=== PATIENT | male | born 1940 | race Caucasian/White ===

== ENCOUNTER 2019-07-27 09:37 | Observation (INO) ==
[2019-07-27] MEDS ORDERED: BENTYL I.M. INJ 10 MG IM ONE ×2 (11:24→11:37)
--- NOTE | 2019-07-27 11:25 | DR.ABDMALE ---
HPI Time seen Time Seen by Provider: 07/27/19 11:17 PCP Primary Care Physician: CAROL HPI comment HPI Comment: Hx Crohns. Had a resection 18 years ago. Has GI doc in [place]. now 24 hours of abd pain and swelling. He thinks he has a bowel blockage. Complaint Chief Complaint:: PT CO ABDOMINAL PAIN THAT STARTED AT NOON ON 07/26/2019. CO PAIN TO ENTIRE ABDOMEN. STATES HE HAS A HISTORY OF CHRONS DISEASE . STATES "I THINK ITS A BLOCKAGE AGAIN". Self Treatment fo Chief Complaint: NONE Reviewed Nurses Notes Review: Yes Mode of arrival Mode of Arrival: Ambulatory Timing Onset of Chief Complaint: 07/26/19 PMH PMH Past Medical History: Yes Past Medical History: Arthritis and Hypertension Past Medical History Comment: CHRONS Past Surgical History: Yes Surgical History: Abdominal Surgery and Tonsillectomy Family History History of Family Medical Conditions: No Social History Does patient currently use any type of tobacco product: No Have you used tobacco products in the last 12 months: No Type of Tobacco Use: None How many years tobacco product used: 35 Does any household member use tobacco: No Alcohol Use: None Do you use any recreational Drugs:: No Lives With: Spouse Lives Where: Home infectious screening In the last 2 months have you had wt loss of >10#?: NO Have you had fever, night sweats or hemotysis?: No Have you traveled outside the country in the last 6 months?: No Isolation: Standard ROS Review of Systems Constitutional: negative Fever Respiratoy: No Symptoms Reported Cardiovascular: No Symptoms Reported Gastrointestinal/Abdominal: Abdominal Pain and Nausea; negative Diarrhea and Vomiting Genitourinary: No Symptoms Reported Integumentary: No Symptoms Reported All Other Systems: Reviewed and Negative PE Vital Signs Vital Signs: Temp Pulse Pulse Resp BP BP Pulse Ox 07/27/19 17:07 59 L 17 142/78 96 07/27/19 09:52 97.8 F 84 18 117/58 98 General Limitations: No Limitations General Appearance: Alert and Other (in pain, uncomfortable) Eyes Eye exam: Normal Appearance and EOMI; negative Scleral Icterus ENT ENT Exam: Mucous Membranes Moist Chest Chest Inspection: Symmetric Chest Wall Rise Respiratory Respiratory Exam: Normal Lung Sounds Bilat Cardiovascular Cardiovascular Exam: Regular Rate, Normal Rhythm and Normal Heart Sounds Abdominal Exam Abdominal Exam: Soft, Tenderness, Guarding and Incision; negative Rebound, Rigidity and Ascites Abdominal Tenderness: RLQ, LLQ and Moderate Rectal Rectal Exam: Deferred Back Back Exam: Normal Inspection; negative (R) CVA Tenderness and (L) CVA Tenderness Extremeties Extremities Exam: Full ROM; negative Edema Neurologic Neurological Exam: Alert and Oriented X3 Skin Skin Exam: Warm, Dry and Normal Color MDM Differential Diagnosis Differential Diagnosis: Appendicitis, Bowel Obstruction, Diverticular disease and Inflammatory BD COURSE Treatment Treatment: In light of Crohns, his age, and mildly elevated WBC, will place in obs for IV ABX's. Reevaluation 1st: Improved ROR Labs Reviewed Laboratory Results Reviewed?: Yes Result Diagrams: 07/27/19 11:35 07/27/19 11:35 Laboratory: WBC 13.3 X10^3/uL (3.6-10.0) H 07/27/19 11:35 RBC 4.77 X10^6/uL (4.7-6.0) 07/27/19 11:35 Hgb 15.0 g/dL (13.5-18.0) 07/27/19 11:35 Hct 43.8 % (42.0-54.0) 07/27/19 11:35 MCV 92.0 fL (80.0-100.0) 07/27/19 11:35 MCH 31.5 pg (27.0-34.0) 07/27/19 11:35 MCHC 34.2 g/dL (33.0-35.0) 07/27/19 11:35 RDW 12.7 % (11.6-16.5) 07/27/19 11:35 Plt Count 244 X10^3/uL (150.0-450.0) 07/27/19 11:35 MPV 7.8 fL (7.4-11.0) 07/27/19 11:35 Neut % (Auto) 83.6 % (42.0-75.0) H 07/27/19 11:35 Lymph % (Auto) 8.9 % (21.0-51.0) L 07/27/19 11:35 [place] % (Auto) 6.1 % (0.0-13.0) 07/27/19 11:35 Eos % (Auto) 0.8 % (0.9-2.9) L 07/27/19 11:35 Baso % (Auto) 0.6 % (0.2-1.0) 07/27/19 11:35 Neut # (Auto) 11.2 x10^3/uL (2.2-4.8) H 07/27/19 11:35 Lymph # (Auto) 1.2 X10^3/uL (1.3-2.9) L 07/27/19 11:35 [place] # (Auto) 0.8 x10^3/uL (0.3-0.8) 07/27/19 11:35 Eos # (Auto) 0.1 x10^3/uL (0.0-0.2) 07/27/19 11:35 Baso # (Auto) 0.1 X10^3/uL (0.0-0.1) 07/27/19 11:35 Absolute Nucleated RBC 0.1 /100WBC 07/27/19 11:35 Sodium 144 mmol/L (136-145) 07/27/19 11:35 Corrected Sodium 145 mmol/L (136-145) 07/27/19 11:35 Potassium 3.2 mmol/L (3.5-5.1) L 07/27/19 11:35 Chloride 103 mmol/L (98-107) 07/27/19 11:35 Carbon Dioxide 32.9 mmol/L (21-32) H 07/27/19 11:35 BUN 16 mg/dL (7-18) 07/27/19 11:35 Creatinine 1.38 mg/dL (0.70-1.30) H 07/27/19 11:35 Est GFR (MDRD) Af Amer > 60 (>60) 07/27/19 11:35 Est GFR (MDRD) Non-Af 53 (>60) L 07/27/19 11:35 Glucose 124 mg/dL (65-99) H 07/27/19 11:35 Calcium 9.4 mg/dL (8.5-10.1) 07/27/19 11:35 Corrected Calcium TNP 07/27/19 11:35 Total Bilirubin 0.60 mg/dL (0.2-1.0) 07/27/19 11:35 AST 18 Units/L (15-37) 07/27/19 11:35 ALT 21 Units/L (12-78) 07/27/19 11:35 Alkaline Phosphatase 63 Units/L (46-116) 07/27/19 11:35 Total Protein 7.3 g/dL (6.4-8.2) 07/27/19 11:35 Albumin 3.9 g/dL (3.4-5.0) 07/27/19 11:35 Globulin 3.4 g/dL (2.5-4.5) 07/27/19 11:35 Albumin/Globulin Ratio 1.1 Ratio (1.1-2.1) 07/27/19 11:35 Other Results Comments: high WBC w shift. Creat elevated XRAY XRAY Findings: obstr series n'l. CT abd shows Crohns flare terminal ileum. Opioid Opioid Risk Tool Total: 0 Total Score Risk Category: Low Risk Copyright: Neel DE SANTIAGO predicting aberrant behaviors Instructions Forms: Excuse From Work ADDITIONAL NOTES Additional Notes Additional Notes: Pt placed in observation for Crohns flare
[2019-07-27 11:43] LABS: BASOPHILS # (AUTO) 0.1 X10^3/uL (0.0-0.1); BASOPHILS % (AUTO) 0.6 % (0.2-1.0); EOSINOPHILS # (AUTO) 0.1 x10^3/uL (0.0-0.2); EOSINOPHILS % (AUTO) 0.8 % (0.9-2.9); HEMATOCRIT 43.8 % (42.0-54.0); LYMPHOCYTES # (AUTO) 1.2 X10^3/uL (1.3-2.9); LYMPHOCYTES % (AUTO) 8.9 % (21.0-51.0); MEAN CORPUSCULAR HEMOGLOBIN 31.5 pg (27.0-34.0); MEAN CORPUSCULAR HGB CONC 34.2 g/dL (33.0-35.0); MEAN PLATELET VOLUME 7.8 fL (7.4-11.0); MONOCYTES # (AUTO) 0.8 x10^3/uL (0.3-0.8); MONOCYTES % (AUTO) 6.1 % (0.0-13.0); NEUTROPHILS # (AUTO) 11.2 x10^3/uL (2.2-4.8); NEUTROPHILS % (AUTO) 83.6 % (42.0-75.0); PLATELET COUNT 244 X10^3/uL (150.0-450.0); RED BLOOD COUNT 4.77 X10^6/uL (4.7-6.0); RED CELL DISTRIBUTION WIDTH 12.7 % (11.6-16.5); WHITE BLOOD COUNT 13.3 X10^3/uL (3.6-10.0)
[2019-07-27 11:55] LABS: ALANINE AMINOTRANSFERASE 21 Units/L (12-78); ALBUMIN 3.9 g/dL (3.4-5.0); ALKALINE PHOSPHATASE 63 Units/L (46-116); ASPARTATE AMINO TRANSFERASE 18 Units/L (15-37); BLOOD UREA NITROGEN 16 mg/dL (7-18); CALCIUM 9.4 mg/dL (8.5-10.1); CARBON DIOXIDE 32.9 mmol/L (21-32); CHLORIDE 103 mmol/L (98-107); COR NA(FOR HYPERGLY) 145 mmol/L (136-145); CREATININE 1.38 mg/dL (0.70-1.30); SODIUM 144 mmol/L (136-145); TOTAL PROTEIN 7.3 g/dL (6.4-8.2); eGFR NON BLACK RACES 53 (>60)
--- NOTE | 2019-07-27 12:00 | RAD ---
HISTORYAbdominal painSTUDYACUTE ABDOMEN SERIESCOMPARISONNoneFINDINGSThe heart is within normal limits in size. The po are normal. The lungs are hyperinflated but clear. The abdominal gas pattern is nonspecific. No pneumoperitoneum is identified. No abnormal masses or abnormal calcifications are identified. The regional skeleton is intact.IMPRESSIONNonspecific bowel gas patternElectronically signed by: VANDANA EVANGELISTA (Jul 27, 2019 11:59:53)
--- NOTE | 2019-07-27 15:19 | CT ---
ABDOMEN/PELVIS WITH CONHISTORY: ABD PAINComparison:NoneTechnique:Multiple axial images of the abdomen and pelvis were obtained from the lung bases to the pubic symphysis following the administration of IV contrast as well as oral contrast . Dose reduction techniques including Automated Exposure Control (AEC) and adjustment of mA and kV were utlized.Findings:The heart is normal in size. There is no pericardial effusion. Emphysema of the lung bases.Severe coronary calcification.Liver and spleen are normal in size, enhancement characteristics and contour. No focal lesions. The portal vein is patent. No ductal dilitation. Gallbladder is present. No calcified gallstones or gallbladder wall thickening. The pancreas is unremarkable. Adrenal glands are normal. Kidneys enhance symmetrically without hydronephrosis or nephrolithiasis.Circumferential thickening inflammation of the distal ileum for example on series 4, image 65. Contrast breast beyond this point into the colon. No abnormal appearing mesenteric or retroperitoneal lymph nodes. . No free fluid or fluid collections.The bladder is normal in appearance. Prostate not enlarged no free fluid or abnormal pelvic lymph nodes.No aggressive osseous lesions.IMPRESSION:1. Inflammation of the terminal ileum. No evidence of obstruction. This can be seen with inflammatory bowel disease if that is consistent with patient's history.Electronically signed by: CHILO ARCE (Jul 27, 2019 15:18:06)
[2019-07-27] MEDS ORDERED: CIPRO IV 400 MG PREMIX* 400 MG/200 ML IV.SOLN. IV ONE ×2 (15:49→15:56)
[2019-07-27] MEDS ORDERED: FLAGYL IV PREMIX 500 MG BAG 500 MG/100 ML BAG IV ONE ×2 (15:50→15:55)
[2019-07-27] MEDS ORDERED: NS 1000 ML 1,000 ML IV ONE (15:50)
[2019-07-27] MEDS ORDERED: NS 1000 ML 1,000 ML ONE (15:55)
[2019-07-27] MEDS ORDERED: ZOFRAN INJ 4 MG VIAL IVP PRN (17:22)
--- NOTE | 2019-07-27 17:38 | DR.ABDMALE ---
HPI Time seen Time Seen by Provider: 07/27/19 11:17 PCP Primary Care Physician: CAROL Complaint Chief Complaint:: PT CO ABDOMINAL PAIN THAT STARTED AT NOON ON 07/26/2019. CO PAIN TO ENTIRE ABDOMEN. STATES HE HAS A HISTORY OF CHRONS DISEASE . STATES "I THINK ITS A BLOCKAGE AGAIN". Self Treatment fo Chief Complaint: NONE Mode of arrival Mode of Arrival: Ambulatory Timing Onset of Chief Complaint: 07/26/19 PMH PMH Past Medical History: Yes Past Medical History: Arthritis and Hypertension Past Medical History Comment: CHRONS Past Surgical History: Yes Surgical History: Abdominal Surgery and Tonsillectomy Family History History of Family Medical Conditions: No Social History Does patient currently use any type of tobacco product: No Have you used tobacco products in the last 12 months: No Type of Tobacco Use: None How many years tobacco product used: 35 Does any household member use tobacco: No Alcohol Use: None Do you use any recreational Drugs:: No Lives With: Spouse Lives Where: Home infectious screening In the last 2 months have you had wt loss of >10#?: NO Have you had fever, night sweats or hemotysis?: No Have you traveled outside the country in the last 6 months?: No Isolation: Standard PE Vital Signs Vital Signs: Temp Pulse Pulse Resp BP BP Pulse Ox 07/27/19 17:07 59 L 17 142/78 96 07/27/19 09:52 97.8 F 84 18 117/58 98 ROR Labs Reviewed Result Diagrams: 07/27/19 11:35 07/27/19 11:35 Laboratory: WBC 13.3 X10^3/uL (3.6-10.0) H 07/27/19 11:35 RBC 4.77 X10^6/uL (4.7-6.0) 07/27/19 11:35 Hgb 15.0 g/dL (13.5-18.0) 07/27/19 11:35 Hct 43.8 % (42.0-54.0) 07/27/19 11:35 MCV 92.0 fL (80.0-100.0) 07/27/19 11:35 MCH 31.5 pg (27.0-34.0) 07/27/19 11:35 MCHC 34.2 g/dL (33.0-35.0) 07/27/19 11:35 RDW 12.7 % (11.6-16.5) 07/27/19 11:35 Plt Count 244 X10^3/uL (150.0-450.0) 07/27/19 11:35 MPV 7.8 fL (7.4-11.0) 07/27/19 11:35 Neut % (Auto) 83.6 % (42.0-75.0) H 07/27/19 11:35 Lymph % (Auto) 8.9 % (21.0-51.0) L 07/27/19 11:35 [place] % (Auto) 6.1 % (0.0-13.0) 07/27/19 11:35 Eos % (Auto) 0.8 % (0.9-2.9) L 07/27/19 11:35 Baso % (Auto) 0.6 % (0.2-1.0) 07/27/19 11:35 Neut # (Auto) 11.2 x10^3/uL (2.2-4.8) H 07/27/19 11:35 Lymph # (Auto) 1.2 X10^3/uL (1.3-2.9) L 07/27/19 11:35 [place] # (Auto) 0.8 x10^3/uL (0.3-0.8) 07/27/19 11:35 Eos # (Auto) 0.1 x10^3/uL (0.0-0.2) 07/27/19 11:35 Baso # (Auto) 0.1 X10^3/uL (0.0-0.1) 07/27/19 11:35 Absolute Nucleated RBC 0.1 /100WBC 07/27/19 11:35 Sodium 144 mmol/L (136-145) 07/27/19 11:35 Corrected Sodium 145 mmol/L (136-145) 07/27/19 11:35 Potassium 3.2 mmol/L (3.5-5.1) L 07/27/19 11:35 Chloride 103 mmol/L (98-107) 07/27/19 11:35 Carbon Dioxide 32.9 mmol/L (21-32) H 07/27/19 11:35 BUN 16 mg/dL (7-18) 07/27/19 11:35 Creatinine 1.38 mg/dL (0.70-1.30) H 07/27/19 11:35 Est GFR (MDRD) Af Amer > 60 (>60) 07/27/19 11:35 Est GFR (MDRD) Non-Af 53 (>60) L 07/27/19 11:35 Glucose 124 mg/dL (65-99) H 07/27/19 11:35 Calcium 9.4 mg/dL (8.5-10.1) 07/27/19 11:35 Corrected Calcium TNP 07/27/19 11:35 Total Bilirubin 0.60 mg/dL (0.2-1.0) 07/27/19 11:35 AST 18 Units/L (15-37) 07/27/19 11:35 ALT 21 Units/L (12-78) 07/27/19 11:35 Alkaline Phosphatase 63 Units/L (46-116) 07/27/19 11:35 Total Protein 7.3 g/dL (6.4-8.2) 07/27/19 11:35 Albumin 3.9 g/dL (3.4-5.0) 07/27/19 11:35 Globulin 3.4 g/dL (2.5-4.5) 07/27/19 11:35 Albumin/Globulin Ratio 1.1 Ratio (1.1-2.1) 07/27/19 11:35 Opioid Opioid Risk Tool Total: 0 Total Score Risk Category: Low Risk Copyright: Neel DE SANTIAGO predicting aberrant behaviors Diagnosis Discharge Problem: Crohn's disease involving terminal ileum
[2019-07-27] MEDS ORDERED: K-DUR TAB 20 MEQ PO PRN (19:05)
[2019-07-27] MEDS ORDERED: POTASSIUM CHL 40 MEQ/NS 0.45% 500 ML IV PRN (19:05)
[2019-07-27] MEDS ORDERED: MICRO K EXTEN CAP 10 MEQ PO PRN (19:05)
[2019-07-27] MEDS ORDERED: MAGNESIUM SULFATE 1 GRAM/100 mL PREMIX 1 GM/100 ML BAG IV PRN (19:05)
[2019-07-27] MEDS ORDERED: K-RIDER 10 MEQ/NS 100 ML 10 MEQ/100 ML BAG IV PRN (19:05)
[2019-07-27] MEDS ORDERED: POTASSIUM CHLORIDE LIQ 20 MEQ UDC PO PRN (19:05)
[2019-07-27] MEDS ORDERED: KLOR-CON PO PRN (19:05)
[2019-07-27] MEDS ORDERED: POTASSIUM CHL 60 MEQ/NS 0.45% 500 ML IV PRN (19:05)
[2019-07-27 19:14] VITALS: BMI 25.2
[2019-07-27] MEDS ORDERED: PREVNAR 13 IM ONE ×2 (19:14→23:03)
[2019-07-27] MEDS: CIPRO IV 400 MG PREMIX* 400 MG/200 ML IV.SOLN. IV SCH (21:36)
[2019-07-27] MEDS: FLAGYL IV PREMIX 500 MG BAG 500 MG/100 ML BAG IV SCH (21:36)
[2019-07-27] MEDS: KETOROLAC OP SCH (22:34)
[2019-07-27] MEDS: PRED FORTE 1 % OP SCH (22:34)
[2019-07-28] MEDS: FLAGYL IV PREMIX 500 MG BAG 500 MG/100 ML BAG IV SCH ×2 (02:07→09:01)
[2019-07-28 06:10] LABS: BASOPHILS # (AUTO) 0.1 X10^3/uL (0.0-0.1); BASOPHILS % (AUTO) 0.6 % (0.2-1.0); EOSINOPHILS # (AUTO) 0.2 x10^3/uL (0.0-0.2); EOSINOPHILS % (AUTO) 2.5 % (0.9-2.9); HEMATOCRIT 39.6 % (42.0-54.0); HEMOGLOBIN 13.6 g/dL (13.5-18.0); LYMPHOCYTES # (AUTO) 1.7 X10^3/uL (1.3-2.9); LYMPHOCYTES % (AUTO) 17.3 % (21.0-51.0); MEAN CORPUSCULAR HEMOGLOBIN 31.4 pg (27.0-34.0); MEAN CORPUSCULAR HGB CONC 34.3 g/dL (33.0-35.0); MEAN CORPUSCULAR VOLUME 91.7 fL (80.0-100.0); MEAN PLATELET VOLUME 8.1 fL (7.4-11.0); MONOCYTES # (AUTO) 0.9 x10^3/uL (0.3-0.8); MONOCYTES % (AUTO) 9.4 % (0.0-13.0); NEUTROPHILS # (AUTO) 6.7 x10^3/uL (2.2-4.8); NEUTROPHILS % (AUTO) 70.2 % (42.0-75.0); PLATELET COUNT 217 X10^3/uL (150.0-450.0); RED BLOOD COUNT 4.32 X10^6/uL (4.7-6.0); RED CELL DISTRIBUTION WIDTH 13.1 % (11.6-16.5); WHITE BLOOD COUNT 9.6 X10^3/uL (3.6-10.0)
[2019-07-28 06:36] LABS: ALANINE AMINOTRANSFERASE 20 Units/L (12-78); ALBUMIN 3.2 g/dL (3.4-5.0); ALKALINE PHOSPHATASE 55 Units/L (46-116); ASPARTATE AMINO TRANSFERASE 17 Units/L (15-37); BLOOD UREA NITROGEN 15 mg/dL (7-18); CALCIUM 8.4 mg/dL (8.5-10.1); CARBON DIOXIDE 30.5 mmol/L (21-32); CHLORIDE 106 mmol/L (98-107); SODIUM 144 mmol/L (136-145); TOTAL PROTEIN 6.1 g/dL (6.4-8.2); eGFR NON BLACK RACES > 60 (>60)
[2019-07-28 07:14] LABS: ERYTHROCYTE SEDIMENTATION RATE 7 MM/HOUR (0-15)
[2019-07-28] MEDS ORDERED: ZESTORETIC 20/25 MG PO SCH (09:00)
[2019-07-28] MEDS ORDERED: LOVENOX INJ 40 MG SYR SC SCH (09:00)
[2019-07-28] MEDS ORDERED: SOLU-Medrol 125 MG VIAL IVP SCH (09:00)
[2019-07-28] MEDS ORDERED: NS 1000 ML 1,000 ML IV SCH (09:00)
[2019-07-28] MEDS ORDERED: DEXAMETHASONE OP SCH (09:00)
[2019-07-28] MEDS: PRED FORTE 1 % OP SCH (09:04)
[2019-07-28] MEDS: KETOROLAC OP SCH (09:05)
[2019-07-28] MEDS: CIPRO IV 400 MG PREMIX* 400 MG/200 ML IV.SOLN. IV SCH (10:16)
[2019-07-28 12:20] VITALS: BP 146/67
--- NOTE | 2019-08-15 18:29 | DR.CARTERS ---
Short Stay Summary - Admission Date Date of Admission: 07/27/19 - Discharge Date Discharge Date: 07/28/19 - Admission Diagnoses (1) Crohn's disease involving terminal ileum Status: Acute (2) Abdominal pain Status: Acute - Hospital Course Hospital Course: IS A 78 YEAR OLD PATIENT OF OURS WHO PRESENTED TO THE ER WITH COMPLAINTS OF ABDOMINAL PAIN THAT STARTED AT NOON ON 07/26/19. HE COMPLAINTED OF PAIN TO THE ENTIRE ABDOMEN. HE REPORTED A HISTORY OF CHRONS DISEASE AND REPORTS THAT HE THINKS HE HAS A NEW BLOCKAGE. ON ARRIVAL, VITALS WERE 97.8-84-18-98%-117/58. LABS WERE OBTAINED. ABNORMAL LAB VALUES INCLUDED THE FOLLOWING: WBC 13.3, POTASSIUM 3.2, CREATININE 1.38, GLUCOSE 124. AN ABDOMEN XRAY WAS OBTAINED. IT REVEALED: NONSPECIFIC BOWEL GAS PATTERN. AN ABDOMEN/PELVIS CT WITH CONTRAST WAS OBTAINED AND REVEALED: 1. Inflammation of the terminal ileum. No evidence of obstruction. This can be seen with inflammatory bowel disease if that is consistent with patient's history. HE WAS GIVEN BENTYL 10MG IM X 1, CIPRO 400MG IV X 1, FLAGYL 500MG IV X 1 IN THE ER. HE WAS ADMITTED FOR FURTHER EVALUATION AND TREATMENT OF ABDOMINAL PAIN DUE TO CHRONS FLARE. HE WAS STARTED ON IV FLAGYL, IV CIPRO, IV ZOFRAN, LOVENOX, AND HOME MEDICATIONS WERE RESUMED. OTHERWISE, WE PLANNED TO FOLLOW UP WITH AM LABS AND CONTINUE TO MONITOR. ON THE DAY FOLLOWING ADMISSION, PATIENT IS ALERT AND ORIENTED, LYING IN BED ON MORNING ROUNDS. HE DENIES PAIN OR NAUSEA THIS MORNING. ON EXAMINATION, HEART IS REGULAR IN RATE AND RHYTHM. BILATERAL LUNGS ARE NOTED WITH DIMINISHED LUNG SOUNDS THROUGHOUT. ABDOMEN IS ROUND, SOFT, AND NON-TENDER WITH NORMAL BOWEL SOUNDS NOTED IN ALL QUADRANTS. HIS VITALS THIS MORNING ARE: 98.1-68-16-96%-141/76. LABS WERE OBTAINED. ABNORMAL LAB VALUES INCLUDE THE FOLLOWING: RBC 4.32, HCT 39.6, POTASSIUM 3.0, CALCIUM 8.4, CRP 3.60, TOTAL PROTEIN 6.1, ALBUMIN 3.2. WE PLANNED FOR DISCHARGE. INSTRUCTIONS FOR MEDICATIONS AND FOLLOW UP WERE DISCUSSED WITH PATIENT AND FAMILY. HE WAS DISCHARGED HOME WITH NEW PRESCRIPTIONS OF PROTONIX 40MG PO BID, PREDNISONE 10MG PO BID, AND SULFASALAZINE 500MG PO BID. HE IS INSTRUCTED TO DISCONTINUE THE NEXIUM. HE WILL NEED TO FOLLOW UP IN THE OFFICE IN ONE WEEK. HE WAS DISCHARGED HOME WITH FAMILY IN STABLE CONDITION. - Discharge Medications Discharge Medications: Home Medication List alprazolam 0.5 mg PO HS PRN 07/27/19 [History] atorvastatin 10 mg PO HS 07/27/19 [History] dexamethasone [Maxidex] 1 drp OPHTHALMIC (EYE) DAILY 07/27/19 [History] ergocalciferol (vitamin D2) 50,000 unit PO WEEKLY 07/27/19 [History] esomeprazole magnesium 40 mg PO DAILY 07/27/19 [History] ketorolac 1 drp OPHTHALMIC (EYE) QID 07/27/19 [History] lisinopril-hydrochlorothiazide 1 tab PO DAILY 07/27/19 [History] prednisolone acetate 1 drp OPHTHALMIC (EYE) QID 07/27/19 [History] pantoprazole 40 mg PO BID #60 tab 07/28/19 [Rx] prednisone 10 mg PO BID #20 tab 07/28/19 [Rx] sulfasalazine 0.5 g PO BID #60 tab 07/28/19 [Rx] Prescriptions: pantoprazole Ovidio Hilton prednisone Oviido Hilton sulfasalazine Ovidio Hilton - Discharge Plan Disposition: HOME, SELF-CARE Condition: Good Prescriptions: pantoprazole 40 mg PO BID #60 tab prednisone 10 mg PO BID #20 tab sulfasalazine 0.5 g PO BID #60 tab - Follow up/Referrals Follow up/Referrals: Ovidio Hilton [Primary Care Provider] - 1 WEEK - Instructions Additional Instructions: DIET TOLERATED. ACTIVITY TOLERATED. Forms: Excuse From Work or School, Patient Portal
== END 2019-07-28 11:45 | disposition home or self-care (01) ==
LOC: ICU 09:49 → ER 09:49 → ICU 17:51
PROVIDERS: ADMIT Internal Medicine; ATTEND Internal Medicine
DX: K50.018 Crohn's disease of small intestine with other complication; E11.65 Type 2 diabetes mellitus with hyperglycemia; Z23 Encounter for immunization; R94.4 Abnormal results of kidney function studies; R79.82 Elevated C-reactive protein (CRP); E87.6 Hypokalemia; R10.84 Generalized abdominal pain
CPT/HCPCS: 36415; 74022; 74177; 80053; 83735; 85025; 85652; 86140; 90670; 96365; 96367; 96372; 96374; 96375; 99284; A4222; G0378; J0500; J0744; J1650; J2930; J7030; S0030